=== PATIENT | female | born 1975 | race Two or more races ===

== ENCOUNTER → 2017-06-30 | Outpatient (CLI) | payer OTHER ==
[~2017-06-30] MED LIST: BENZONATATE PO; HYCODAN; IBUPROFEN800 MG PO; LEVAQUIN750 MG PO; PREDNISONE PO; PREDNISONE10 MG PO; PROAIR HFA8.5 GM IH; PROVENTIL17 GM IH; PSEUDOEPHEDRINE60 MG PO; VICODIN 5/500 T1 TAB PO
--- NOTE | ~2017-06-30 | CR63 ---
[facility] A Service of [facility] RADIOLOGY TEXT RESULTS PATIENT: GLO FONTENOT LOCATION: [facility] : [birth year] UNIT #: [id number] AGE: [address]: Dipika Casiano MD SEX: F ORDER DR: [id number] [facility] [address] [place], [place] [address] [id number] O MR#: [id number] Acc #: [id number] NAME: GLO FONTENOT : 1975 SEX: F STUDY DATE/TIME: 06/30/2017 17:27 UNIT: [facility] ROOM: STUDY DESCRIPTION: CR Chest 2 View Attending Physician: Dipika Casiano M.D. Referring Physician: Dipika Casiano M.D. Ordering Physician: Dipika Casiano M.D. [facility] REPORT This report is preliminary unless electronic signature is present EXAM Chest x-ray, 06/30. 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 Mild congestion. 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 FINDINGS Two views of the chest are compared with 06/18/2012. There is mild elevation of the right hemidiaphragm. Cardiac and mediastinal contours are normal. The lungs are clear. No pneumothorax. No evidence of active TB. IMPRESSION Negative chest x-ray. Dictated by... Yinka Newman Jr., M.D. THIS IS AN ELECTRONICALLY VERIFIED REPORT Yinka Newman Jr., M.D. at 07/02/2017 3:47 PM ADOLFO/reza TD: 07/02/2017 10:06 JOB #: [id number] MEDICAL IMAGING REPORT Page 1 of 1 COPY
== END | disposition home or self-care (01) ==
LOC: CRAD 16:55
DX: Z11.1 Encounter for screening for respiratory tuberculosis (principal)
CPT/HCPCS: 71020